=== PATIENT | male | born 1990 | race African-American/Black ===

== ENCOUNTER 2020-02-20 17:43 | Inpatient (IN) | payer OTHER ==
[2020-02-20 18:06] VITALS: BMI 22.8
--- NOTE | 2020-02-20 18:10 | HP ---
CIWA Score Nausea/Vomitin Muscle Tremors: 3 Anxiety: 3 Agitation: 2 Paroxysmal Sweats: 2 Orientation: 1-Uncertain about Date Tacttile Disturbances: 0-None Auditory Disturbances: 0-None Visual Disturbances: 0-None Headache: 0-None Present CIWA-Ar Total Score: 13 - Admission Criteria OASAS Guidelines: Admission for Medically Managed Detox: Requires at least one of the followin. CIWA greater than 12 2. Seizures within the past 24 hours 3. Delirium tremens within the past 24 hours 4. Hallucinations within the past 24 hours 5. Acute intervention needed for co occurring medical disorder 6. Acute intervention needed for co occurring psychiatric disorder 7. Severe withdrawal that cannot be handled at a lower level of care (continued vomiting, continued diarrhea, abnormal vital signs) requiring intravenous medication and/or fluids 8. Admission ROS [facility] Chief Complaint: Seeking admission to detox from alcohol Allergies/Adverse Reactions: Allergies Allergy/AdvReac Type Severity Reaction Status Date / Time No Known Allergies Allergy Verified 02/20/20 20:02 History of Present Illness: 29 years old male with 14 years of alcohol dependence is seeking admission to detox. This is his first admission to [facility] and patient reports his first inpatient detoxification. He reports that he drinks 2 pints Vodka and 2 x 40oz. ''cobra'' beer daily. He denies past medical history, psych. history and suicidal ideation at this time. He is unemployed, homeless and denies any legal issues. He reports + eye [employer], blackouts and denies alcohol related seizures. Exam Limitations: No Limitations - Ebola screening Have you traveled outside of the country in the last 21 days: No Have you had contact with anyone from an Ebola affected area: No Have you been sick,other than usual withdrawal symptoms: No Do you have a fever: No - Review of Systems Constitutional: Chills, Loss of Appetite, Malaise EENT: reports: No Symptoms Reported Respiratory: reports: No Symptoms reported Cardiac: reports: No Symptoms Reported GI: reports: Diarrhea (diarrhea x 4), Nausea, Poor Appetite, Poor Fluid Intake, Abdominal cramping : reports: No Symptoms Reported Musculoskeletal: reports: No Symptoms Reported Integumentary: reports: Dryness, Flushing Endocrine: reports: No Symptoms Reported Hematology: reports: No Symptoms Reported Psychiatric: reports: Orientated x3, Anxious Other Systems: Reviewed and Negative Patient History - Patient Medical History Hx Anemia: No Hx Asthma: No Hx Chronic Obstructive Pulmonary Disease (COPD): No Hx Cancer: No Hx Cardiac Disorders: No Hx Congestive Heart Failure: No Hx Hypertension: No Hx Hypercholesterolemia: No HX Cerebrovascular Accident: No Hx Seizures: No Hx Diabetes: No Hx Gastrointestinal Disorders: No Hx Liver Disease: No Hx Genitourinary Disorders: No Hx Sexually Transmitted Disorders: No Hx Renal Disease (ESRD): No Hx Human Immunodeficiency Virus (HIV): No (Negative 2020) Hx Hepatitis C: No Hx Depression: No Hx Suicide Attempt: No (Denies suicidal ideation at this time) Hx Bipolar Disorder: No Hx Schizophrenia: No - Patient Surgical History Past Surgical History: No - PPD History Previous Implant?: Yes Documented Results: Negative w/o proof Implanted On Prior [facility] Admission?: No PPD to be Administered?: Yes - Reproductive History Patient is a Female of Child Bearing Age (11 -55 yrs old): No (Male) - Smoking Cessation Smoking history: Current every day smoker Have you smoked in the past 12 months: Yes Aproximately how many cigarettes per day: 10 Hx Chewing Tobacco Use: No Initiated information on smoking cessation: Yes 'Breaking Loose' booklet given: 02/20/20 - Substance & Tx. History Hx Alcohol Use: Yes Hx Substance Use: Yes Substance Use Type: Alcohol, Marijuana Hx Substance Use Treatment: No - Substances abused Alcohol Substance route: Oral Frequency: Daily Amount used: 2 pints Vodka and 2 x 40oz. cobra beer Age of first use: 15 Date of last use: 02/20/20 Admission Physical Exam [facility] - Physical General Appearance: Yes: Moderate Distress, Tremorous, Anxious HEENTM: Yes: Within Normal Limits Respiratory: Yes: Lungs Clear, Normal Breath Sounds, No Respiratory Distress Neck: Yes: Within Normal Limits Breast: Yes: Breast Exam Deferred Cardiology: Yes: Regular Rhythm, Regular Rate Abdominal: Yes: Normal Bowel Sounds, Soft Genitourinary: Yes: Within Normal Limits Back: Yes: Normal Inspection Musculoskeletal: Yes: Back pain Extremities: Yes: Tremors Neurological: Yes: Within Normal Limits Integumentary: Yes: Warm Lymphatic: Yes: Within Normal Limits - Diagnostic (1) Alcohol dependence with withdrawal, uncomplicated Current Visit: Yes Status: Acute (2) Nicotine dependence Current Visit: Yes Status: Chronic Qualifiers: Nicotine product type: cigarettes Substance use status: uncomplicated Qualified Code(s): F17.210 - Nicotine dependence, cigarettes, uncomplicated Cleared for Admission [facility] - Detox or Rehab [facility] Level of Care: Medically Managed Detox Regimen/Protocol: Librium Claeared for Rehab Admission: No Inpatient Rehab Admission - Rehab Decision to Admit Inpatient rehab admission?: No
[2020-02-20] MEDS ORDERED: ONDANSETRON *ODT* 4 MG TABLET SL PRN (18:22)
[2020-02-20] MEDS ORDERED: NICOTINE POLACRILEX 2 MG GUM BUC PRN (18:22)
[2020-02-20] MEDS ORDERED: MENTHOL/PHENOL 1 EACH UD MM PRN (18:22)
[2020-02-20] MEDS ORDERED: MAGNESIUM HYDROX 2400MG/30ML ORAL SUSPENSION 30 ML CUP PO PRN (18:22)
[2020-02-20] MEDS ORDERED: METHOCARBAMOL 500 MG TABLET PO PRN (18:22)
[2020-02-20] MEDS ORDERED: ACETAMINOPHEN 325 MG TABLET (FP) PO PRN ×2 (18:22)
[2020-02-20] MEDS ORDERED: MAGNESIUM CITRATE 300 ML BOTTLE PO PRN (18:22)
[2020-02-20] MEDS ORDERED: MAG HYDROX/AL HYDROX/SIMETH 30 ML UNIT-DOSE CUP PO PRN (18:22)
[2020-02-20] MEDS ORDERED: chlordiazePOXIDE HCL 25 MG CAPSULE PO PRN (18:22)
[2020-02-20] MEDS ORDERED: BISMUTH SUBSALICYLATE 524 MG/30 ML UD PO PRN (18:22)
[2020-02-20] MEDS ORDERED: IBUPROFEN 400 MG TABLET (FP) PO PRN (18:22)
[2020-02-20] MEDS: THIAMINE HCL 100 MG TABLET (FP) PO SCH (21:08)
[2020-02-20] MEDS: MELATONIN 5 MG TABLETS PO SCH (21:08)
[2020-02-20] MEDS: chlordiazePOXIDE HCL 25 MG CAPSULE PO SCH (22:04)
[2020-02-21] MEDS: chlordiazePOXIDE HCL 25 MG CAPSULE PO SCH ×4 (05:22→22:23)
--- NOTE | 2020-02-21 09:02 | EKG ---
Test Reason : Blood Pressure : / mmHG Vent. Rate : 064 BPM Atrial Rate : 064 BPM P-R Int : 142 ms QRS Dur : 090 ms QT Int : 380 ms P-R-T Axes : 043 072 059 degrees QTc Int : 392 ms NORMAL SINUS RHYTHM EARLY REPOLARIZATION NORMAL ECG NO PREVIOUS ECGS AVAILABLE Confirmed by MD JUANY, PATEL ([id number]) on 02/21/2020 9:01:51 AM Referred By: Confirmed By:PATEL HARRINGTON MD
--- NOTE | 2020-02-21 09:45 | PN ---
[facility] CIWA - CIWA Score Nausea/Vomitin-Mild Nausea/No Vomiting Muscle Tremors: 3 Anxiety: 3 Agitation: 2 Paroxysmal Sweats: No Perspiration Orientation: 0-Oriented Tacttile Disturbances: 1-Very Mild Itch/Numbness Auditory Disturbances: 0-None Visual Disturbances: 0-None Headache: 2-Mild CIWA-Ar Total Score: 12 S Progress Note (SOAP) Subjective: alert,irritable,anxious,interrupted sleep,tremor,aching pain Objective: 02/21/20 14:42 Vital Signs Temperature 97.7 F 02/21/20 12:30 Pulse Rate 87 02/21/20 12:30 Respiratory Rate 18 02/21/20 12:30 Blood Pressure 126/79 02/21/20 12:30 O2 Sat by Pulse Oximetry (%) 100 02/21/20 12:30 Laboratory Last Values WBC 5.3 K/mm3 (4.0-10.0) 02/21/20 08:00 RBC 4.44 M/mm3 (4.00-5.60) 02/21/20 08:00 Hgb 14.7 GM/dL (11.7-16.9) 02/21/20 08:00 Hct 43.6 % (35.4-49) 02/21/20 08:00 MCV 98.1 fl (80-96) H 02/21/20 08:00 MCH 33.0 pg (25.7-33.7) 02/21/20 08:00 MCHC 33.7 g/dl (32.0-35.9) 02/21/20 08:00 RDW 13.5 % (11.9-15.9) 02/21/20 08:00 Plt Count 246 K/MM3 (134-434) 02/21/20 08:00 MPV 8.3 fl (7.5-11.1) 02/21/20 08:00 Sodium 139 mmol/L (136-145) 02/21/20 07:45 Potassium 4.0 mmol/L (3.5-5.1) 02/21/20 07:45 Chloride 105 mmol/L (98-107) 02/21/20 07:45 Carbon Dioxide 27 mmol/L (21-32) 02/21/20 07:45 Anion Gap 7 MMOL/L (8-16) L 02/21/20 07:45 BUN 14.5 mg/dL (7-18) 02/21/20 07:45 Creatinine 0.9 mg/dL (0.55-1.3) 02/21/20 07:45 Est GFR (CKD-EPI)AfAm 133.30 02/21/20 07:45 Est GFR (CKD-EPI)NonAf 115.01 02/21/20 07:45 Random Glucose 86 mg/dL (74-106) 02/21/20 07:45 Calcium 9.1 mg/dL (8.5-10.1) 02/21/20 07:45 Total Bilirubin 0.7 mg/dL (0.2-1) 02/21/20 07:45 AST 14 U/L (15-37) L 02/21/20 07:45 ALT 18 U/L (13-61) 02/21/20 07:45 Alkaline Phosphatase 79 U/L (45-117) 02/21/20 07:45 Total Protein 7.0 g/dl (6.4-8.2) 02/21/20 07:45 Albumin 3.7 g/dl (3.4-5.0) 02/21/20 07:45 Syphilis Serology Non-reactive (NONREACTIVE) 02/21/20 07:45 Assessment: 02/21/20 14:43 withdrawal symptom Plan: continue detox librium regimen
[2020-02-21] MEDS: PRENATAL VITAMINS W/ FOLIC ACID TABLET (FP) PO SCH (10:18)
[2020-02-21] MEDS: NICOTINE 14 MG/24 HOURS TOPICAL PATCH TD SCH (10:20)
[2020-02-21 10:32] LABS: HEMATOCRIT 43.6 % (35.4-49); HEMOGLOBIN 14.7 GM/dL (11.7-16.9); MCHC 33.7 g/dl (32.0-35.9); MEAN CELL VOLUME 98.1 fl (80-96); MEAN PLT VOLUME 8.3 fl (7.5-11.1); PLATELET COUNT 246 K/MM3 (134-434); RBC 4.44 M/mm3 (4.00-5.60); RDW 13.5 % (11.9-15.9); WHITE BLOOD COUNT 5.3 K/mm3 (4.0-10.0)
[2020-02-21 10:42] LABS: ALBUMIN 3.7 g/dl (3.4-5.0); BILIRUBIN,TOTAL 0.7 mg/dL (0.2-1); BLOOD UREA NITROGEN 14.5 mg/dL (7-18); CALCIUM 9.1 mg/dL (8.5-10.1); CREATININE 0.9 mg/dL (0.55-1.3)
[2020-02-21] MEDS ORDERED: PNEUMOC 13-VAL CONJ-DIP CRM/PF 0.5 ML DISP.SYRIN IM ONE (12:00)
[2020-02-21] MEDS: THIAMINE HCL 100 MG TABLET (FP) PO SCH (22:23)
[2020-02-21] MEDS: MELATONIN 5 MG TABLETS PO SCH (22:23)
[2020-02-22] MEDS: chlordiazePOXIDE HCL 10 MG CAPSULE PO SCH ×4 (05:18→22:17)
[2020-02-22] MEDS: NICOTINE 14 MG/24 HOURS TOPICAL PATCH TD SCH (10:16)
[2020-02-22] MEDS: PRENATAL VITAMINS W/ FOLIC ACID TABLET (FP) PO SCH (10:16)
--- NOTE | 2020-02-22 11:54 | PN ---
[facility] CIWA - CIWA Score Nausea/Vomitin-Mild Nausea/No Vomiting Muscle Tremors: 2 Anxiety: 2 Agitation: 3 Paroxysmal Sweats: No Perspiration Orientation: 0-Oriented Tacttile Disturbances: 1-Very Mild Itch/Numbness Auditory Disturbances: 0-None Visual Disturbances: 0-None Headache: 1-Very Mild CIWA-Ar Total Score: 10 S Progress Note (SOAP) Subjective: alert,irritable,anxious,interrupted sleep,tremor Objective: 02/22/20 15:07 Vital Signs Temperature 97.9 F 02/22/20 12:43 Pulse Rate 82 02/22/20 12:43 Respiratory Rate 18 02/22/20 12:43 Blood Pressure 117/77 02/22/20 12:43 O2 Sat by Pulse Oximetry (%) 100 02/22/20 12:43 Laboratory Last Values WBC 5.3 K/mm3 (4.0-10.0) 02/21/20 08:00 RBC 4.44 M/mm3 (4.00-5.60) 02/21/20 08:00 Hgb 14.7 GM/dL (11.7-16.9) 02/21/20 08:00 Hct 43.6 % (35.4-49) 02/21/20 08:00 MCV 98.1 fl (80-96) H 02/21/20 08:00 MCH 33.0 pg (25.7-33.7) 02/21/20 08:00 MCHC 33.7 g/dl (32.0-35.9) 02/21/20 08:00 RDW 13.5 % (11.9-15.9) 02/21/20 08:00 Plt Count 246 K/MM3 (134-434) 02/21/20 08:00 MPV 8.3 fl (7.5-11.1) 02/21/20 08:00 Sodium 139 mmol/L (136-145) 02/21/20 07:45 Potassium 4.0 mmol/L (3.5-5.1) 02/21/20 07:45 Chloride 105 mmol/L (98-107) 02/21/20 07:45 Carbon Dioxide 27 mmol/L (21-32) 02/21/20 07:45 Anion Gap 7 MMOL/L (8-16) L 02/21/20 07:45 BUN 14.5 mg/dL (7-18) 02/21/20 07:45 Creatinine 0.9 mg/dL (0.55-1.3) 02/21/20 07:45 Est GFR (CKD-EPI)AfAm 133.30 02/21/20 07:45 Est GFR (CKD-EPI)NonAf 115.01 02/21/20 07:45 Random Glucose 86 mg/dL (74-106) 02/21/20 07:45 Calcium 9.1 mg/dL (8.5-10.1) 02/21/20 07:45 Total Bilirubin 0.7 mg/dL (0.2-1) 02/21/20 07:45 AST 14 U/L (15-37) L 02/21/20 07:45 ALT 18 U/L (13-61) 02/21/20 07:45 Alkaline Phosphatase 79 U/L (45-117) 02/21/20 07:45 Total Protein 7.0 g/dl (6.4-8.2) 02/21/20 07:45 Albumin 3.7 g/dl (3.4-5.0) 02/21/20 07:45 Syphilis Serology Non-reactive (NONREACTIVE) 02/21/20 07:45 COVID-19 (JONATHAN) Not detected (Not Detected) 02/20/20 20:17 Assessment: 02/22/20 15:08 withdrawal symptom Plan: continue detox librium regimen
[2020-02-22] MEDS: MELATONIN 5 MG TABLETS PO SCH (22:17)
[2020-02-22] MEDS: THIAMINE HCL 100 MG TABLET (FP) PO SCH (22:17)
[2020-02-23] MEDS ORDERED: chlordiazePOXIDE HCL 10 MG CAPSULE PO PRN
[2020-02-23] MEDS: chlordiazePOXIDE 5 MG CAPSULE PO SCH ×4 (05:40→22:08)
--- NOTE | 2020-02-23 09:42 | PN ---
S CIWA - CIWA Score Nausea/Vomitin-Mild Nausea/No Vomiting Muscle Tremors: 1-None Visible, but [place] Anxiety: 1-Mildly Anxious Agitation: 1-Slight > Activity Paroxysmal Sweats: No Perspiration Orientation: 0-Oriented Tacttile Disturbances: 0-None Auditory Disturbances: 0-None Visual Disturbances: 0-None Headache: 1-Very Mild CIWA-Ar Total Score: 5 [facility] Progress Note (SOAP) Subjective: alert,irritable,anxious,interrupted sleep,aching pain Objective: 02/23/20 14:36 Vital Signs Temperature 97.5 F L 02/23/20 12:22 Pulse Rate 87 02/23/20 12:22 Respiratory Rate 18 02/23/20 12:22 Blood Pressure 135/75 02/23/20 12:22 O2 Sat by Pulse Oximetry (%) 99 02/23/20 12:22 02/23/20 14:38 hiv test pending Assessment: 02/23/20 14:37 withdrawal symptom but less 02/23/20 14:41 Plan: continue detox librium regimen,discharge in am
[2020-02-23] MEDS: PRENATAL VITAMINS W/ FOLIC ACID TABLET (FP) PO SCH (10:37)
[2020-02-23] MEDS: NICOTINE 14 MG/24 HOURS TOPICAL PATCH TD SCH (10:38)
[2020-02-23] MEDS: THIAMINE HCL 100 MG TABLET (FP) PO SCH (22:07)
[2020-02-23] MEDS: MELATONIN 5 MG TABLETS PO SCH (22:07)
[2020-02-24] MEDS ORDERED: chlordiazePOXIDE HCL 10 MG CAPSULE PO SCH (05:00)
[2020-02-24 09:31] VITALS: BP 125/80; PULSE 80; TEMP 98.2
--- NOTE | 2020-02-24 09:50 | DS ---
[facility] Detox Discharge Summary Admission Date: 02/20/20 Discharge Date: 02/24/20 - History Present History: Alcohol Dependence, Cannabis Dependence Additional Comments: Pt is medically cleared and discharged today. Pt completed the detox protocol. Pt is instructed to follow-up with an outpatient CD program and also to follow- up with his pmd which he verbalized understanding. Pt is AOX3, in no acute respiratory distress, Full ROM, and ambulatory. Pertinent Past History: h/o alcohol and cannabis use disorder. - Physical Exam Results Vital Signs: Vital Signs Temperature 98.2 F 02/24/20 08:40 Pulse Rate 80 02/24/20 08:40 Respiratory Rate 18 02/24/20 08:40 Blood Pressure 125/80 02/24/20 08:40 O2 Sat by Pulse Oximetry (%) 99 02/24/20 06:22 Vital Signs 02/24/20 02/24/20 06:22 08:40 Temperature 97.1 F L 98.2 F Pulse Rate 82 80 Respiratory 16 18 Rate Blood Pressure 106/70 125/80 O2 Sat by Pulse 99 Oximetry (%) Laboratory Last Values WBC 5.3 K/mm3 (4.0-10.0) 02/21/20 08:00 RBC 4.44 M/mm3 (4.00-5.60) 02/21/20 08:00 Hgb 14.7 GM/dL (11.7-16.9) 02/21/20 08:00 Hct 43.6 % (35.4-49) 02/21/20 08:00 MCV 98.1 fl (80-96) H 02/21/20 08:00 MCH 33.0 pg (25.7-33.7) 02/21/20 08:00 MCHC 33.7 g/dl (32.0-35.9) 02/21/20 08:00 RDW 13.5 % (11.9-15.9) 02/21/20 08:00 Plt Count 246 K/MM3 (134-434) 02/21/20 08:00 MPV 8.3 fl (7.5-11.1) 02/21/20 08:00 Sodium 139 mmol/L (136-145) 02/21/20 07:45 Potassium 4.0 mmol/L (3.5-5.1) 02/21/20 07:45 Chloride 105 mmol/L (98-107) 02/21/20 07:45 Carbon Dioxide 27 mmol/L (21-32) 02/21/20 07:45 Anion Gap 7 MMOL/L (8-16) L 02/21/20 07:45 BUN 14.5 mg/dL (7-18) 02/21/20 07:45 Creatinine 0.9 mg/dL (0.55-1.3) 02/21/20 07:45 Est GFR (CKD-EPI)AfAm 133.30 02/21/20 07:45 Est GFR (CKD-EPI)NonAf 115.01 02/21/20 07:45 Random Glucose 86 mg/dL (74-106) 02/21/20 07:45 Calcium 9.1 mg/dL (8.5-10.1) 02/21/20 07:45 Total Bilirubin 0.7 mg/dL (0.2-1) 02/21/20 07:45 AST 14 U/L (15-37) L 02/21/20 07:45 ALT 18 U/L (13-61) 02/21/20 07:45 Alkaline Phosphatase 79 U/L (45-117) 02/21/20 07:45 Total Protein 7.0 g/dl (6.4-8.2) 02/21/20 07:45 Albumin 3.7 g/dl (3.4-5.0) 02/21/20 07:45 Syphilis Serology Non-reactive (NONREACTIVE) 02/21/20 07:45 COVID-19 (JONATHAN) Not detected (Not Detected) 02/20/20 20:17 HIV Ag/Ab Combo Qual Negative (NEGATIVE) 02/23/20 11:35 Labs noted. Pertinent Admission Physical Exam Findings: withdrawal symptoms. - Treatment Hospital Course: Detox Protocol Followed, Detoxed Safely, Responded well, Discharged Condition Good - Medication Discharge Medications: Ambulatory Orders NK [No Known Home Medication] 02/20/20 - Diagnosis (1) Cannabis use disorder, mild, abuse Status: Chronic (2) Alcohol dependence with withdrawal, uncomplicated Status: Acute (3) Nicotine dependence Status: Chronic Qualifiers: Nicotine product type: cigarettes Substance use status: uncomplicated Qualified Code(s): F17.210 - Nicotine dependence, cigarettes, uncomplicated (4) Alcohol use disorder Status: Chronic - AMA Did Patient Leave Against Medical Advice: No
[2020-02-25] MEDS ORDERED: chlordiazePOXIDE 5 MG CAPSULE PO ONE (05:00)
== END 2020-02-24 09:19 | disposition home or self-care (01) | DRG 775 ==
LOC: YASAS 17:43 → Y3N 18:56
PROVIDERS: ADMIT Allergy & Immunology; ATTEND Allergy & Immunology
PROC: HZ2ZZZZ Detoxification Services for Substance Abuse Treatment (ICD-10-PCS; principal; 2020-02-20)
DX: F10.230 Alcohol dependence with withdrawal, uncomplicated (principal); F12.20 Cannabis dependence, uncomplicated; F17.210 Nicotine dependence, cigarettes, uncomplicated
CPT/HCPCS: 36415; 80053; 85027; 86780; 87389; 93005; 93010; U0003